=== PATIENT | female | born 1965 | race Hispanic/Latino ===

== ENCOUNTER 2020-04-16 15:35 | Inpatient (IN) | payer OTHER, SELFPAY ==
[2020-04-16 16:11] LABS: Bacteria/HPF None Seen HPF (None Seen); Bilirubin Negative (Negative); Blood, Urine Negative (Negative); Clarity Clear (Clear); Glucose, Urine (Dipstick) Normal (Negative); Ketone, Urine 10 mg/dL (Negative); Leukocyte Negative Leu/uL (Negative); Nitrite Negative (Negative); Protein, Urine (Dipstick) 50 mg/dL (Neg-Trace); RBC/HPF 0-3 HPF (0-3); Specific Gravity, Urine 1.021 (1.002-1.036); Squamous Epithelial 0-3 HPF (0-3); Urobilinogen Normal mg/dL (Less than 2); WBC/HPF 0-3 HPF (0-3); pH, Urine 8.5 (5.0-9.0)
[2020-04-16 16:20] LABS: Hemoglobin 14.3 g/dL (12.0-16.0); Mean Corpuscular HGB CONC 33.9 g/dL (32.0-36.0); Mean Corpuscular Hemoglobin 30.8 pg (27.0-31.0); Mean Corpuscular Volume 90.9 fL (78.0-98.0); Mean Platelet Volume 8.8 fL (7.4-10.4); Platelet Count 248 thou/uL (130-400); RBC Distribution Width 11.7 % (11.5-14.5); Red Blood Cell (RBC) Count 4.64 mill/uL (4.20-5.40); White Blood Cell (WBC) Count 12.7 thou/uL (4.8-10.8)
[2020-04-16 16:37] LABS: Band 10 % (5-11); Lymphocytes 1 % (21-51); MDiff Complete? YES; Monocytes 2 % (0-10); Neutrophil 87 % (42-75); Platelet Morphology Comment Appears Adequate; RBC Morphology Normal
[2020-04-16 16:44] LABS: ALT (SGPT) 978 U/L (8-55); AST (SGOT) 1373 U/L (5-34); Albumin 4.5 g/dL (3.5-5.0); Alkaline Phosphatase 172 U/L (40-110); Anion Gap 16 mmol/L (10-20); BUN (Urea Nitrogen) 7 mg/dL (9.8-20.1); Bilirubin, Total 1.8 mg/dL (0.2-1.2); Calc. Creatinine Clearance 0 mL/min (70-130); Calcium 9.4 mg/dL (7.8-10.44); Carbon Dioxide 22 mmol/L (22-29); Chloride 101 mmol/L (98-107); Estimated GFR-MDRD 83; Globulin 3.1 g/dL (2.4-3.5); Glucose 122 mg/dL (70-105); Lipase 79 U/L (8-78); Potassium 3.6 mmol/L (3.5-5.1); Protein, Total 7.6 g/dL (6.0-8.3); Sodium 135 mmol/L (136-145)
[2020-04-16] MEDS ORDERED: Morphine 4 MG/ML VIAL ONE ×2 (17:56→18:38)
[2020-04-16] MEDS ORDERED: Ondansetron PF 4 MG/2 ML Vial ONE (17:56)
[2020-04-16] MEDS ORDERED: Acetaminophen 325 MG/10.15 ML UDCUP ONE (18:44)
[2020-04-16] MEDS ORDERED: Piperacillin/Tazobactam 4.5 GM VIAL ONE (18:44)
[2020-04-16] MEDS ORDERED: Acetaminophen 325 MG TAB ONE (18:47)
--- NOTE | 2020-04-16 20:16 | ULT ---
RIGHT UPPER QUADRANT ULTRASOUND: 04/16/20 PROVIDED CLINICAL HISTORY: Right upper quadrant pain. FINDINGS: The visualized portions of the IVC and pancreas appear normal. The liver demonstrates no mass or intr ahepatic biliary ductal dilatation. The gallbladder demonstrates gallstones and sludge without wall t hickening or pericholecystic fluid. The core driller describes a negative sonographic Quinn's sign. T he right kidney demonstrates no evidence for hydronephrosis or mass. The common duct is not dilated. IMPRESSION: Cholelithiasis without sonographic evidence for acute findings related to the gallbladder. POS: MOHINDER
[2020-04-16] MEDS ORDERED: Morphine 4 MG/ML VIAL SLOW IVP PRN (21:20)
[2020-04-16] MEDS ORDERED: Ondansetron PF 4 MG/2 ML Vial IVP PRN (21:30)
[2020-04-16] MEDS ORDERED: Acetaminophen 325 MG TAB PO PRN (21:30)
[2020-04-16] MEDS ORDERED: Ondansetron ODT 4 MG TAB SL PRN (21:30)
[2020-04-16 23:40] VITALS: BMI 25.2
[2020-04-17] MEDS: Piperacillin/Tazobactam 3.375 GM in Sodium Chloride 0.9% 100 ML IVPB SCH ×4 (00:53→23:54)
[2020-04-17] MEDS: Lactated Ringer's 1,000 ML IV SCH ×2 (06:42)
[2020-04-17] MEDS ORDERED: Ondansetron PF 4 MG/2 ML Vial IVP PRN (07:30)
[2020-04-17] MEDS ORDERED: Dextrose 50% Abboject 50 ML SYRINGE SLOW IVP PRN (07:30)
[2020-04-17] MEDS ORDERED: Morphine 2 MG/ML VIAL SLOW IVP PRN (07:30)
[2020-04-17] MEDS ORDERED: Promethazine HCl 25 MG/ML VIAL IM PRN ×2 (07:30→18:33)
[2020-04-17] MEDS ORDERED: Dextrose 5% in Water 1,000 ML IV PRN (07:30)
[2020-04-17 07:56] LABS: #Basophils 0.1 thou/uL (0.0-0.2); #Monocytes 0.4 thou/uL (0.11-0.59); #Neutrophils 6.5 thou/uL (1.40-6.50); %Basophils 0.7 % (0.0-1.0); %Eosinophils 0.5 % (0.0-10.0); %Monocytes 4.6 % (0.0-10.0); %Neutrophils 82.1 % (42.0-75.0); Hemoglobin 12.5 g/dL (12.0-16.0); Mean Corpuscular HGB CONC 34.3 g/dL (32.0-36.0); Mean Corpuscular Hemoglobin 31.7 pg (27.0-31.0); Mean Corpuscular Volume 92.3 fL (78.0-98.0); Mean Platelet Volume 8.5 fL (7.4-10.4); Platelet Count 182 thou/uL (130-400); RBC Distribution Width 11.9 % (11.5-14.5); Red Blood Cell (RBC) Count 3.93 mill/uL (4.20-5.40); White Blood Cell (WBC) Count 7.9 thou/uL (4.8-10.8)
[2020-04-17] MEDS: Famotidine/PF 20 mg/2ml Vial SLOW IVP SCH ×2 (08:14→21:32)
[2020-04-17] MEDS: D5 1/2 NS w/20 mEq KCL 1,000 ML IV SCH ×2 (08:14→21:36)
[2020-04-17 08:19] LABS: ALT (SGPT) 601 U/L (8-55); AST (SGOT) 332 U/L (5-34); Albumin 3.6 g/dL (3.5-5.0); Alkaline Phosphatase 133 U/L (40-110); Anion Gap 11 mmol/L (10-20); BUN (Urea Nitrogen) 8 mg/dL (9.8-20.1); Bilirubin, Total 1.2 mg/dL (0.2-1.2); Calc. Creatinine Clearance 76 mL/min (70-130); Carbon Dioxide 23 mmol/L (22-29); Chloride 108 mmol/L (98-107); Estimated GFR-MDRD 78; Globulin 2.5 g/dL (2.4-3.5); Glucose 96 mg/dL (70-105); Potassium 3.4 mmol/L (3.5-5.1); Protein, Total 6.1 g/dL (6.0-8.3); Sodium 139 mmol/L (136-145)
[2020-04-17] MEDS ORDERED: Rocuronium Bromide 10 MG/ML (10ML VIAL) ONE (09:05)
[2020-04-17] MEDS ORDERED: Ketorolac Tromethamine 30 MG/ML VIAL ONE (09:05)
[2020-04-17] MEDS ORDERED: Ondansetron PF 4 MG/2 ML Vial ONE ×2 (09:05→15:46)
[2020-04-17] MEDS ORDERED: Lidocaine 1% PF 5 ML VIAL ONE (09:05)
[2020-04-17] MEDS ORDERED: PROPOFOL 200 MG/20 ML VIAL ONE (09:05)
[2020-04-17] MEDS ORDERED: Dexamethasone 20 MG/5 ML VIAL ONE (09:05)
[2020-04-17] MEDS ORDERED: Glycopyrrolate 0.2 MG/ML 5 ML SYRINGE ONE (09:05)
--- NOTE | 2020-04-17 10:08 | PDOC.GSPN ---
Surgery Progress Note: Subj - Subjective Narrative: Ms. Price is a 54 year old female that presented to the ER yesterday evening with a chief complaint of epigastric and RUQ pain. The pain has been persistent for 1.5 weeks and is constant. She describes it as mostly a dull pain with bouts of sharpness that radiate to the back bilaterally. She has had associated symptoms of nausea and vomiting along with decreased appetite. Today she was lying in bed comfortably during the time of the exam and was in no acute distress. She endorsed 3/10 pain and mentioned that she had recently received pain medications. She denies any nausea, vomiting, shortness of breath, fever, constipation, and diarrhea. She did not eat much last night and has been NPO since this morning. She does not smoke, drink, or partake in recreational drugs. She does not have a regular primary care physician and denies any past medical and surgical history. She does not take any medications regularly. Surgery Progress Note: Obj - Vital signs Vital signs: Vital Signs - Most Recent Temp Pulse Resp BP Pulse Ox 98.6 F 80 16 99/54 L 97 04/17/20 07:08 04/17/20 07:08 04/17/20 07:08 04/17/20 07:08 04/17/20 07:08 - Physical Exam General: no distress, well developed, well nourished, moderate pain (3/10) Neck: no bruits, no lymphadectomy Respiratory: clear to auscultation, normal expansion, normal respiratory effort, breath sounds present Abdomen: soft, nondistended, positive bowel sounds, tender (RUQ, RLQ, and epigastrium but not radiating to the back currently) Surgery Progress Note: Results - Labs Result Diagrams: 04/17/20 07:42 04/17/20 07:42 Lab results: Laboratory Results - last 24 hr 04/17/20 04/17/20 07:42 07:42 WBC 7.9 RBC 3.93 L Hgb 12.5 Hct 36.3 MCV 92.3 MCH 31.7 H MCHC 34.3 RDW 11.9 Plt Count 182 MPV 8.5 Neutrophils % 82.1 H Lymphocytes % 12.0 L Monocytes % 4.6 Eosinophils % 0.5 Basophils % 0.7 Neutrophils # 6.5 Lymphocytes # 1.0 L Monocytes # 0.4 Eosinophils # 0.0 Basophils # 0.1 Sodium 139 Potassium 3.4 L Chloride 108 H Carbon Dioxide 23 Anion Gap 11 BUN 8 L Creatinine 0.77 Estimated GFR (MDRD) 78 Glucose 96 Calcium 8.0 Total Bilirubin 1.2 AST 332 H ALT 601 H Alkaline Phosphatase 133 H Serum Total Protein 6.1 Albumin 3.6 Globulin 2.5 Albumin/Globulin Ratio 1.4 Surgery Progress Note: A/P - Problem (1) Cholelithiasis Current Visit: Yes Code(s): K80.20 - CALCULUS OF GALLBLADDER W/O CHOLECYSTITIS W/O OBSTRUCTION Status: Acute Qualifiers: Cholelithiasis location: gallbladder Cholecystitis presence: without cholecystitis - Plan Plan: Ms. Price has symptoms from her
--- NOTE | 2020-04-17 11:56 | HP ---
CHIEF COMPLAINT: Right upper quadrant/epigastric abdominal pain. HISTORY OF PRESENT ILLNESS: The patient is a pleasant 54-year-old female. She presented to the emergency room late last night complaining of severe epigastric right upper quadrant abdominal pain. She denied history of previous symptoms like that. She had at least one episode of emesis. In the emergency room, she underwent evaluation with radiologic and laboratory studies. Laboratory studies showed a leukocytosis with a white blood cell count of 12.7. Her hemoglobin is 14.3. Chemistry profile revealed essentially normal electrolytes; however, all of her liver function tests were markedly elevated including a bilirubin of 1.8 and an AST of 1373. Her lipase was slightly elevated at 79. Gallbladder ultrasound revealed cholelithiasis without definite evidence of cholecystitis. She was admitted to my service for further management. This morning, she tells me she feels much better. She has very little discomfort. Her laboratory studies show that her liver function tests have improved across the board. Her AST is down from 1300 to 300. Her bilirubin is normal at 1.2. White blood cell count has dropped down to 7.9. PAST MEDICAL HISTORY: Essentially unremarkable. PAST SURGICAL HISTORY: None. MEDICATIONS: None. ALLERGIES: NO KNOWN DRUG ALLERGIES. PERSONAL AND SOCIAL HISTORY: She is with 3 children. One of her daughters is present at bedside. She denies tobacco or alcohol use. She works as in housekeeping. REVIEW OF SYSTEMS: Ten-system review was obtained, is otherwise unremarkable. FAMILY HISTORY: Noncontributory. PHYSICAL EXAMINATION: VITAL SIGNS: Temperature 98.6, pulse 80, and blood pressure is 99/54. GENERAL: Well-developed, well-nourished, pleasant female in no acute distress. She is alert and oriented x3. HEAD, EYES, EARS, NOSE, AND THROAT: Unremarkable. NECK: Supple without mass or tenderness. LUNGS: Clear to auscultation throughout. CARDIAC: Regular rate and rhythm without murmur. ABDOMEN: Soft. She has a focal discomfort to deeper palpation in the right upper quadrant. There is definitely no Quinn sign present at this time. EXTREMITIES: Unremarkable. ASSESSMENT: The patient with cholecystitis/cholelithiasis/severe episode of biliary colic. In light of her markedly elevation of liver function tests, I would certainly recommend proceeding with laparoscopic cholecystectomy. She is at high risk for recurrence of these problems. I have discussed the operation in detail with the patient as well as potential risks. She understands and agrees to proceed with surgery at this time. Job ID: [id number]
[2020-04-17 12:10] LABS: SARS-CoV-2 MS2 Positive; SARS-CoV-2 N Gene Negative; SARS-CoV-2 S Gene Negative; SARS-CoV-2 by NAA Not Detected (NotDetected); SARS-CoV-2 orf1ab Negative
[2020-04-17] MEDS ORDERED: Famotidine 20 MG TAB ONE (15:46)
[2020-04-17] MEDS ORDERED: Scopolamine 1.5 mg/72 hour Patch ONE (15:47)
[2020-04-17] MEDS ORDERED: Famotidine/PF 20 mg/2ml Vial ONE (15:47)
[2020-04-17] MEDS ORDERED: Iothalamate Meglumine 60% 50 ML VIAL FS ONE (16:15)
[2020-04-17] MEDS ORDERED: Lidocaine 1% w/Epinephrine 1:100K 20 ML VIAL ONE (16:15)
[2020-04-17] MEDS ORDERED: Bupivacaine 0.25% HCL 30 ML VIAL ONE (16:15)
[2020-04-17] MEDS ORDERED: Sodium Chloride 0.9% 100 ML ONE (17:07)
[2020-04-17] MEDS ORDERED: Piperacillin/Tazobactam 3.375 GM VIAL ONE (17:07)
[2020-04-17] MEDS ORDERED: Fentanyl 100 MCG/2 ML VIAL ONE ×2 (18:02→19:46)
[2020-04-17] MEDS ORDERED: PACU-Morphine 4MG/ML VIAL SLOW IVP PRN (18:33)
[2020-04-17] MEDS ORDERED: Ondansetron HCl/PF 4 MG/2 ML Vial IVP PRN (18:33)
[2020-04-17] MEDS ORDERED: Morphine Sulfate 2 MG/ML SYRINGE SLOW IVP PRN (18:33)
[2020-04-17] MEDS ORDERED: HYDROmorphone 2 MG/ML VIAL SLOW IVP PRN (18:33)
[2020-04-17] MEDS ORDERED: Promethazine HCl 25 MG/ML VIAL SLOW IVP PRN (18:33)
--- NOTE | 2020-04-17 20:30 | RAD ---
INTRAOPERATIVE CHOLANGIOGRAM: 04/17/20 PROVIDED CLINICAL HISTORY: Cholelithiasis. FINDINGS/IMPRESSION: Spot fluoroscopic images of the right upper quadrant demonstrate opacification of the biliary system, without evidence for apparent filling defect. Contrast material is seen within the duodenum. There i s a somewhat narrowed appearance to the distal common duct, nonspecific. Correlate with persistence o f this finding at real time imaging. Code T POS: MOHINDER
[2020-04-18] MEDS: D5 1/2 NS w/20 mEq KCL 1,000 ML IV SCH ×2 (02:48→08:13)
[2020-04-18] MEDS: Piperacillin/Tazobactam 3.375 GM in Sodium Chloride 0.9% 100 ML IVPB SCH ×2 (05:28)
[2020-04-18] MEDS: Famotidine/PF 20 mg/2ml Vial SLOW IVP SCH (08:13)
[2020-04-18 10:51] VITALS: BP 97/53; TEMP 98.3
--- NOTE | 2020-04-19 20:01 | OP ---
DATE OF PROCEDURE: 04/17/2020 PREOPERATIVE DIAGNOSIS: Acute cholecystitis. POSTOPERATIVE DIAGNOSIS: Acute cholecystitis. OPERATION PERFORMED: Laparoscopic cholecystectomy. ANESTHESIA: General endotracheal anesthesia. INDICATIONS: The patient is a 54-year-old female. She presented to the hospital with severe right upper quadrant abdominal pain, leukocytosis, and elevation of liver function test. I recommended laparoscopic cholecystectomy. PROCEDURE IN DETAIL: Informed consent was obtained. The patient was taken to the operating room where general endotracheal anesthesia was obtained with the patient in the supine position. The abdomen was prepped with Betadine and draped in the usual sterile fashion. 0.25% Marcaine with epinephrine was infiltrated below the umbilicus and a 10 mm infraumbilical incision was created. A Veress needle was passed through this incision into the peritoneal cavity. A pneumoperitoneum was established using carbon dioxide up to a pressure of 15 mmHg. Local anesthetic was infiltrated and 3 additional 5 mm right upper quadrant incisions were created. Through the mid incision, a 5 mm port was passed into the peritoneal cavity. The camera was passed through this port and under direct vision, an 11 port was passed through the infraumbilical incision. The camera was replaced through this port, and under direct vision, 2 additional 5 mm ports were passed through the incisions already created. The gallbladder was grasped and retracted in a cephalad direction. Minimal adhesions were bluntly stripped away from the apex of the gallbladder, and the apex was retracted laterally and inferiorly. Careful dissection was carried out to the apex of the gallbladder to identify the cystic duct and cystic artery. These were each carefully dissected circumferentially. The duct was of normal caliber. Both the duct and the artery were divided between clips, leaving 2 on the side to remain within the abdomen. The gallbladder was then dissected out of the gallbladder fossa using electrocautery and removed through the infraumbilical port site. The fascia was closed with 0 Vicryl suture and a GraNee needle. The right upper quadrant was inspected and irrigated. All irrigant was aspirated. All ports and instruments were removed under direct vision. Pneumoperitoneum was carefully evacuated. Additional local anesthetic was infiltrated into each port site. The skin edges were approximated with 4-0 Monocryl subcuticular sutures, and Dermabond was placed externally. There were no complications. The patient tolerated the procedure well and was taken to the recovery room in stable condition. FINDINGS: The patient's gallbladder had extensive adhesions to it, but a lot of the acute inflammation had resolved. The gallbladder was thickened and there were gallstones present within it. The duct appeared to potentially be slightly dilated. She did have a recent history of slightly elevated bilirubin level of 1.8, that had normalized down to 1.2 today. When I incised the duct and got no bilious return, I decided to proceed with a cholangiogram. This was performed uneventfully, revealing normal filling of all intrahepatic radicles as well as easy emptying of the duodenum. Because of the size of the duct, I additionally secured with a PDS Endoloop tie. The operation was performed uneventfully with no complications and minimal blood loss. Job ID: [id number]
== END 2020-04-18 11:11 | disposition home or self-care (01) | DRG 419 ==
LOC: ERS 15:35 → SURG A 18:55
PROVIDERS: ADMIT Specialist; ATTEND Specialist
PROC: 0FT44ZZ Resection of Gallbladder, Percutaneous Endoscopic Approach (ICD-10-PCS; principal; 2020-04-17)
PROC: BF131ZZ Fluoroscopy of Gallbladder and Bile Ducts using Low Osmolar Contrast (ICD-10-PCS; 2020-04-17)
DX: K80.00 Calculus of gallbladder with acute cholecystitis without obstruction (principal); Z20.828 Contact with and (suspected) exposure to other viral communicable diseases
CPT/HCPCS: 36415; 36600; 47532; 76705; 80053; 81003; 81015; 83605; 83690; 85025; 87040; 87635; 88304; 93005; 96361; 96365; 96375; J1100; J1610; J1885; J2270; J2405; J2543; J2704; J3010; J3480; J3490; S0020; S0028; U0003